=== PATIENT | male | born 1985 | race Caucasian/White ===

== ENCOUNTER 2020-07-02 17:59 | Emergency (ER) | payer OTHER, SELFPAY ==
[2020-07-02 18:08] VITALS: BP 111/73; PULSE 79; RESP 18; TEMP 36.8; O2SAT 97; BMI 25.1
--- NOTE | 2020-07-02 18:54 | ED_ITS ---
HPI - Animal Bite General Chief Complaint: Animal Bite Stated Complaint: Dog Bite Source: patient Mode of arrival: ambulatory Limitations: no limitations History of Present Illness HPI narrative: 34-year-old male with no significant past medical history presents with bite wounds from his own dog on the left forearm on both dorsal and ventral aspects, and a superficial abrasion to the left lateral lower extremity. Patient stated that he ?failed today? with training his dog. Dog is fully vaccinated. Patient does not have any other complaints at this time. MD complaint: animal bite Onset (ago): hour(s) (Within the hour arrival) Animal: dog Description of animal: household pet Mechanism: bite Location - Extremities: left: forearm and lower leg Pain description: dull and constant Severity scale (1-10): 5 Context: playing with animal Treatments prior to arrival: wound dressing(s) and irrigation Related Data Patient tetanus UTD: Yes Previous Rx's Medication Instructions Recorded amoxicillin-pot clavulanate 1 tab PO Q12H 10 Days #20 tab 07/02/20 [Augmentin] ibuprofen 600 mg PO TID PRN #30 tab 07/02/20 Allergies Allergy/AdvReac Type Severity Reaction Status Date / Time No Known Allergies Allergy Verified 07/02/20 18:59 Review of Systems Review of Systems: Constitutional: No Fever, No Chills ENT/Mouth: No Ear Pain, No Hoarseness, No sore throat Eyes: No Eye Pain, No Swelling, No Redness, No Foreign Body Cardiovascular: No Chest Pain, No SOB Respiratory: No Cough, No Dyspnea Gastrointestinal: No Nausea, No Vomiting, No Diarrhea, No abdominal Pain Genitourinary: No Dysuria, No Hematuria Musculoskeletal: No joint pain, No Myalgias, No Joint Swelling Skin: Positive puncture wounds to the left forearm, superficial abrasion to the left lower extremity, No rash Neuro: No Weakness, No Numbness, No Paresthesias, No Loss of Consciousness, No Dizziness, No Headache Psych: No Anxiety/Panic, No Depression Heme/Lymph: no easy bruising, no Lymphadenopathy Endocrine: No Polyuria, No Polydipsia Yes all other systems are reviewed and are negative [facility] Past Medical History Attestation statement: The following information was validated with the patient. Source: old records reviewed Medical History Anxiety Diabetes Social History Social History Smoking Status: Light tobacco smoker Substance Use Type: Marijuana Advance Directives: No Advance Directives Information Provided: Yes Physical Exam Vital Signs: Vital Signs: Last Vital Signs Temp 98.3 F 07/02/20 18:08 Pulse 79 07/02/20 18:08 Resp 18 07/02/20 18:08 BP 111/73 07/02/20 18:08 Pulse Ox 97 07/02/20 18:08 Body Mass Index 25.1 Appearance: Alert. Oriented X3. No acute distress. Eyes: Pupils equal, round and reactive to light. ENT: Pharynx normal. Neck: Normal inspection. Neck supple. CVS: Normal heart rate and rhythm. Pulses normal. Respiratory: No respiratory distress. Breath sounds normal. Abdomen: Soft and nontender. Skin: 3 puncture wound lacerations to left forearm, 1 abrasion to the lateral lower extremity, Skin warm and dry. Normal skin color. Normal skin turgor. Extremities: No lower extremity edema. Full range of motion to all extremities, strength 5/5 to all digits on the left hand, no indication of tendon injury, pulses equal to bilateral extremities. Neuro: No motor deficit. No sensory deficit. Course Course Course Narrative: 34-year-old male With history of diabetes presents with puncture wounds from a bite wound caused by his dog. Plan of care is for x- rays, Tdap is up-to-date, will give pain management and Augmentin. Wound on dorsal forearm 2 cm, 1 suture applied. Prepped and draped in sterile fashion, patient tolerated procedure well. Plan of care is to discharge home, patient does understand wound care and signs and symptoms indicating infection and when to return to the emergency department. Patient verbalized understand ing of and agrees to discharge home Procedures Laceration Laceration 1: Site: upper extremity Side (If applicable): left Size (cm): 2 Description: linear Depth: simple, single layer Local Anesthetic: lidocaine 2% Amount of anesthesia used (mL): 2 Pre-repair: wound explored, irrigated extensively and deep structures intact Skin layer closed with: nylon Size (cm): 5-0 Number of sutures: 1 Technique: simple, interrupted MDM - Animal Bite Differential Diagnosis Differential diagnosis: Likely bite by animal and dog bite Medical Records Attestation: I reviewed the patient's medical records. Lab Data Attestation: I reviewed the patient's lab results. Imaging Data Left forearm x-ray: Attestation: I personally reviewed and interpreted this imaging study as follows: Discharge Plan Discharge Clinical Impression: Dog bite Qualifiers: Encounter type: initial encounter Qualified Code(s): W54.0XXA - Bitten by dog, initial encounter Patient Disposition: Home, Self-Care Instructions: Animal Bite (ED) Additional Instructions: You were evaluated for injuries sustained by your dogs bite. We placed 1 suture into the forearm of urine and arm. Please return in 10 days to have the suture removed. If you notice that the area is infected please seek medical attention immediately. We prescribed Augmentin, please take this medication as directed and complete the entire course. Thank you for choosing this emergency department for evaluation. Please follow-up with primary care physician as needed. Return to the emergency department for any new, concerning, or worsening symptoms. Prescriptions: New amoxicillin-pot clavulanate [Augmentin] 875-125 mg tablet 1 tab PO Q12H 10 Days Qty: 20 RF: 0 ibuprofen 600 mg tablet 600 mg PO TID PRN (Reason: pain) Qty: 30 RF: 0 Interventions: ED Discharge Assessment Last Done: 07/02/20 19:41 Discharge Date/Time: 07/02/20 19:41
--- NOTE | 2020-07-02 18:59 | XR_ITS ---
EXAMINATION: XR FOREARM, LEFT CLINICAL INFORMATION: Animal bite COMPARISON: None TECHNIQUE: AP and lateral views of the left forearm were obtained. FINDINGS: There is air/gas seen in the soft tissues along the medial aspect of the forearm. No radiopaque foreign body is identified. No acute fracture or malalignment. Articulation of the wrist and elbow joint is maintained. XR/XR forearm LT 2V IMPRESSION: Air in the medial soft tissues of the forearm. No radiopaque foreign body is identified. No acute fracture.
[2020-07-02] MEDS: oxyCODONE HCl Immed Release 5 MG TABLET PO (19:08)
[2020-07-02] MEDS: Lidocaine HCl 2 % MPF 5 ML VIAL SUBCUT (19:08)
[2020-07-02] MEDS: Amoxicillin/Potassium Clav 875 MG TABLET PO (19:08)
--- NOTE | 2020-07-02 19:40 | PC.NURSE ---
pt left forearm wound cleaned and flushed with betadine and normal saline. one suture placed by silvia amezquita. dsd applied to forearm and left leg with antibiotic ointment.
== END 2020-07-02 19:41 | disposition home or self-care (01) ==
PROVIDERS: Emergency Provider Internal Medicine; PCP Family Medicine
DX: S51.852A Open bite of left forearm, initial encounter (principal); S80.812A Abrasion, left lower leg, initial encounter; W54.0XXA Bitten by dog, initial encounter; Y93.9 Activity, unspecified; Y92.019 Unspecified place in single-family (private) house as the place of occurrence of the external cause; Y99.9 Unspecified external cause status
CPT/HCPCS: 12001; 73090; 99284